=== PATIENT | female | born 1990 | race Caucasian/White ===

== ENCOUNTER 2017-07-02 18:35 | Inpatient (IN) | payer OTHER ==
[~2017-07-02] VITALS: Ht 157.5 cm; Wt 64.9 kg
[2017-07-02] MEDS ORDERED: IV NORMAL SALINE 1000ML BAG 1,000 ML IV ONE ×3 (19:15→23:00)
[2017-07-02] MEDS ORDERED: ONDANSETRON PF 4 MG/2 ML VIAL. IV ONE (19:15)
[2017-07-02 19:45] LABS: BASO % 1 % (0-3); EOS % 0 % (0-3); HEMATOCRIT 38.8 % (36.0-47.0); HEMOGLOBIN 12.9 g/dL (12.0-15.5); LYMPH # 0.3 x10^3/uL (1.0-4.8); LYMPH % 18 % (24-48); MEAN CORPUSCULAR HEMOGLOBIN 29 pg (25-35); MEAN CORPUSCULAR HGB CONC 33 g/dL (31-37); MEAN CORPUSCULAR VOLUME 88 fL (79-100); MONO % 2 % (0-9); NEUT % 79 % (31-73); PLATELET COUNT 145 x10^3/uL (140-400); RED CELL DISTRIBUTION WIDTH 13.6 % (11.5-14.5)
[2017-07-02 19:50] LABS: WHITE BLOOD COUNT 1.8 x10^3/uL (4.0-11.0)
[2017-07-02 19:56] LABS: POTASSIUM 3.5 mmol/L (3.5-5.1)
[2017-07-02 20:09] LABS: ALBUMIN 3.4 g/dL (3.4-5.0); ALBUMIN/GLOBULIN RATIO 0.8 (1.0-1.7); TOTAL BILIRUBIN 0.8 mg/dL (0.2-1.0); TOTAL PROTEIN 7.6 g/dL (6.4-8.2)
--- NOTE | 2017-07-02 20:43 | PHYS DOC ---
Past Medical History Past Medical History: No Pertinent History Past Surgical History: No Surgical History Alcohol Use: None Drug Use: None Adult General Chief Complaint Chief Complaint: NAUSEA/VOMITING/DIARRHA HPI HPI Patient is a 25 year old female presents with complaints of nausea and vomiting and diarrhea that are nonbloody. No new medications, no sick contacts, no recent travel. Patient denies any pain anywhere. Denies dysuria or vaginal discharge. No rashes Review of Systems Review of Systems Constitutional: Denies fever or chills [] Eyes: Denies change in visual acuity, redness, or eye pain [] HENT: Denies nasal congestion or sore throat [] Respiratory: Denies cough or shortness of breath [] Cardiovascular: No chest pain GI: Denies abdominal pain. Yes nausea, vomiting, diarrhea [] : Denies dysuria or hematuria , pelvic pain or vaginal discharge. Musculoskeletal: Denies back pain or joint pain [] Integument: Denies rash or skin lesions [] Neurologic: Denies headache, focal weakness or sensory changes [] Current Medications Current Medications Current Medications Medications (Trade) Dose Ordered Sig/Lucia Start Time Stop Time Status Last Admin Dose Admin Acetaminophen (Tylenol) 650 mg 1X ONCE 07/02/17 20:45 07/02/17 20:46 DC 07/02/17 20:47 650 MG Ceftriaxone Sodium 50 ml @ 100 mls/hr 1X ONCE 07/02/17 22:00 07/02/17 22:29 07/02/17 22:26 100 MLS/HR Norepinephrine Bitartrate 250 ml @ 0 mls/hr 1X ONCE 07/02/17 23:00 07/02/17 23:01 Ondansetron HCl (Zofran) 4 mg 1X ONCE 07/02/17 19:15 07/02/17 19:29 DC 07/02/17 19:28 4 MG Sodium Chloride 1,000 ml @ 1,000 mls/hr 1X ONCE 07/02/17 23:00 07/02/17 23:59 Allergies Allergies Allergies Coded Allergies Type Severity Reaction Last Updated Verified No Known Drug Allergies 07/02/17 No Physical Exam Physical Exam Constitutional: Well developed, well nourished, mild distress, non-toxic appearance. Pale HENT: Normocephalic, atraumatic, bilateral external ears normal, oropharynx dry , no oral exudates, nose normal. [] Eyes: PERRLA, EOMI, conjunctiva normal, no discharge. [] Neck: Normal range of motion, no tenderness, supple, no stridor. [] Cardiovascular:Heart rate regular rhythm, no murmur, equal pulses, normal perfusion Lungs & Thorax: Bilateral breath sounds clear to auscultation, no tachypnea Abdomen: Bowel sounds normal, soft, no tenderness, no masses, no pulsatile masses. [] Skin: Warm, dry, no erythema, no rash. [] Back: Normal range of motion Extremities: No tenderness, no cyanosis, no DVT, ROM intact, no edema. [] Neurologic: Alert and oriented X 3, normal motor function, no focal deficits noted. [] Psychologic: Affect normal, judgement normal, mood normal. [] Current Patient Data Vital Signs Vital Signs Date Time Temp Pulse Resp B/P (MAP) Pulse Ox O2 Delivery O2 Flow Rate FiO2 07/02/17 21:45 99.6 102 22 94/56 (69) 97 Room Air 99.6 Lab Values Laboratory Tests Test 07/02/17 18:28 07/02/17 19:15 07/02/17 19:20 POC Urine HCG, Qualitative Hcg negative (Negative) Urine Collection Type Unknown Urine Color Yellow Urine Clarity Cloudy Urine pH 5.5 Urine Specific [place] 1.025 Urine Protein 100 mg/dL (NEG-TRACE) Urine Glucose (UA) 100 mg/dL (NEG) Urine Ketones (Stick) 40 mg/dL (NEG) Urine Blood Large (NEG) Urine Nitrite Negative (NEG) Urine Bilirubin Negative (NEG) Urine Urobilinogen Dipstick 0.2 mg/dL (0.2 mg/dL) Urine Leukocyte Esterase Moderate (NEG) Urine RBC Tntc /HPF (0-2) Urine WBC >40 /HPF (0-4) Urine Squamous Epithelial Cells Few /LPF Urine Bacteria Many /HPF (0-FEW) Urine Mucus Mod /LPF White Blood Count 1.8 x10^3/uL (4.0-11.0) *L Red Blood Count 4.40 x10^6/uL (3.50-5.40) Hemoglobin 12.9 g/dL (12.0-15.5) Hematocrit 38.8 % (36.0-47.0) Mean Corpuscular Volume 88 fL (79-100) Mean Corpuscular Hemoglobin 29 pg (25-35) Mean Corpuscular Hemoglobin Concent 33 g/dL (31-37) Red Cell Distribution Width 13.6 % (11.5-14.5) Platelet Count 145 x10^3/uL (140-400) Neutrophils (%) (Auto) 79 % (31-73) H Lymphocytes (%) (Auto) 18 % (24-48) L Monocytes (%) (Auto) 2 % (0-9) Eosinophils (%) (Auto) 0 % (0-3) Basophils (%) (Auto) 1 % (0-3) Neutrophils # (Auto) 1.4 x10^3uL (1.8-7.7) L Lymphocytes # (Auto) 0.3 x10^3/uL (1.0-4.8) L Monocytes # (Auto) 0.0 x10^3/uL (0.0-1.1) Eosinophils # (Auto) 0.0 x10^3/uL (0.0-0.7) Basophils # (Auto) 0.0 x10^3/uL (0.0-0.2) Segmented Neutrophils % 82 % (35-66) H Lymphocytes % 18 % (24-48) L Platelet Estimate Adequate (ADEQUATE) Sodium Level 135 mmol/L (136-145) L Potassium Level 3.5 mmol/L (3.5-5.1) Chloride Level 101 mmol/L (98-107) Carbon Dioxide Level 19 mmol/L (21-32) L Anion Gap 15 (6-14) H Blood Urea Nitrogen 11 mg/dL (7-20) Creatinine 1.0 mg/dL (0.6-1.0) Estimated GFR (Cockcroft-Gault) 67.0 BUN/Creatinine Ratio 11 (6-20) Glucose Level 152 mg/dL (70-99) H Lactic Acid Level 2.4 mmol/L (0.4-2.0) H Calcium Level 9.0 mg/dL (8.5-10.1) Total Bilirubin 0.8 mg/dL (0.2-1.0) Aspartate Amino Transferase (AST) 17 U/L (15-37) Alanine Aminotransferase (ALT) 14 U/L (14-59) Alkaline Phosphatase 45 U/L (46-116) L Total Protein 7.6 g/dL (6.4-8.2) Albumin 3.4 g/dL (3.4-5.0) Albumin/Globulin Ratio 0.8 (1.0-1.7) L Laboratory Tests 07/02/17 19:20 Laboratory Tests 07/02/17 19:20 EKG EKG [] Radiology/Procedures Radiology/Procedures [] Course & Med Decision Making Course & Med Decision Making Pertinent Labs and Imaging studies reviewed. (See chart for details) discussed with patient. 2044 pt feels improved, no vomiting in the ED. 2227 pt BP has been trending down despite fluids. Levophed will be started. Pt admission will be changed from med/tele to ICU. Dr Black has been paged to inform regarding change in status. [] Dragon Disclaimer Dragon Disclaimer This electronic medical record was generated, in whole or in part, using a voice recognition dictation system. Departure Departure Impression: Primary Impression: Leukopenia Additional Impressions: Fever UTI (urinary tract infection) Hypotension Disposition: ADMITTED INPATIENT Admitting Physician: Louann Black Condition: GUARDED Problem Qualifiers Jose CALLEJAS MD Jul 02, 2017 20:43
[2017-07-02 20:45] LABS: PLT ESTIMATE ADEQUATE (ADEQUATE)
[2017-07-02] MEDS ORDERED: ACETAMINOPHEN 325 MG TABLET. PO ONE (20:45)
[2017-07-02 20:52] LABS: BILIRUBIN,URINE NEGATIVE (NEG); GLUCOSE,URINE 100 mg/dL (NEG); NITRITE,URINE NEGATIVE (NEG); PH,URINE 5.5; PROTEIN,URINE 100 mg/dL (NEG-TRACE); UROBILINOGEN,URINE 0.2 mg/dL (0.2 mg/dL)
[2017-07-02 21:25] LABS: BACTERIA,URINE MANY /HPF (0-FEW); RBC,URINE TNTC /HPF (0-2); SQUAMOUS EPITHELIAL CELL,UR FEW /LPF; WBC,URINE >40 /HPF (0-4)
[2017-07-02] MEDS ORDERED: NOREPINEPHRIN PREMIX 250 ML IV ONE (23:00)
[2017-07-02 23:15] VITALS: BP 85/52
[2017-07-02 23:30] VITALS: BP 96/63
[2017-07-02 23:45] VITALS: BP 87/55
[2017-07-03] VITALS (16 sets, daily range): BP systolic 73–108; BP diastolic 42–79
[2017-07-03] MEDS ORDERED: NOREPINEPHRIN PREMIX 250 ML IV PRN (00:45)
[2017-07-03] MEDS: IV NORMAL SALINE 1000ML BAG 1,000 ML IV SCH ×4 (01:16→15:32)
[2017-07-03] MEDS: MORPHINE SULFATE 2 MG/ML DISP.SYRIN. IV PRN ×2 (01:17→14:11)
[2017-07-03] MEDS: ONDANSETRON PF 4 MG/2 ML VIAL. IV PRN ×2 (01:18→12:56)
[2017-07-03] MEDS: ACETAMINOPHEN 325 MG TABLET. PO PRN ×2 (01:18→12:55)
[2017-07-03 05:29] LABS: BASO % 0 % (0-3); EOS % 0 % (0-3); HEMATOCRIT 33.2 % (36.0-47.0); HEMOGLOBIN 11.5 g/dL (12.0-15.5); LYMPH # 0.7 x10^3/uL (1.0-4.8); LYMPH % 3 % (24-48); MEAN CORPUSCULAR HEMOGLOBIN 30 pg (25-35); MEAN CORPUSCULAR HGB CONC 35 g/dL (31-37); MEAN CORPUSCULAR VOLUME 87 fL (79-100); MONO % 8 % (0-9); NEUT % 89 % (31-73); PLATELET COUNT 167 x10^3/uL (140-400); RED BLOOD COUNT 3.81 x10^6/uL (3.50-5.40); RED CELL DISTRIBUTION WIDTH 13.5 % (11.5-14.5)
[2017-07-03 06:11] LABS: CREATININE 0.9 mg/dL (0.6-1.0); GFR 75.1
[2017-07-03 06:18] LABS: CALCIUM 7.1 mg/dL (8.5-10.1)
[2017-07-03 06:19] LABS: WHITE BLOOD COUNT 24.9 x10^3/uL (4.0-11.0)
--- NOTE | 2017-07-03 08:24 | RAD ---
EXAM: CHEST 1 VIEW History: Lower abdominal pain, fever COMPARISON: None available. TECHNIQUE: Single portable radiograph of the chest FINDINGS: The cardiac silhouette is unremarkable. The lungs are clear bilaterally. The costophrenic sulci are clear and well demarcated. IMPRESSION: No radiographic evidence of an acute cardiopulmonary process.
[2017-07-03 09:13] LABS: PLT ESTIMATE ADEQUATE (ADEQUATE)
[2017-07-03] MEDS ORDERED: POTASSIUM CHLORIDE 20 MEQ TABLET.ER. PO ONE (12:30)
[2017-07-03 12:57] LABS: BASO # 0.1 x10^3/uL (0.0-0.2); BASO % 0 % (0-3); EOS % 0 % (0-3); HEMATOCRIT 31.3 % (36.0-47.0); HEMOGLOBIN 10.5 g/dL (12.0-15.5); LYMPH # 1.4 x10^3/uL (1.0-4.8); LYMPH % 8 % (24-48); MEAN CORPUSCULAR HEMOGLOBIN 30 pg (25-35); MEAN CORPUSCULAR HGB CONC 34 g/dL (31-37); MEAN CORPUSCULAR VOLUME 88 fL (79-100); MONO % 9 % (0-9); NEUT % 82 % (31-73); PLATELET COUNT 130 x10^3/uL (140-400); RED BLOOD COUNT 3.55 x10^6/uL (3.50-5.40); RED CELL DISTRIBUTION WIDTH 13.7 % (11.5-14.5); WHITE BLOOD COUNT 17.2 x10^3/uL (4.0-11.0)
--- NOTE | 2017-07-03 13:42 | SSS ---
ADMIT DATE: 07/03/2017 CHIEF COMPLAINT: Fever and abdominal pain. HISTORY OF PRESENT ILLNESS: The patient is a pleasant, healthy 26-year-old female who presented with abdominal pain. She rates it at 10/10. She seemed to have some sepsis ____ is little hypotensive. Her white count initially came back at 1.8 and then we repeated, it was 26,000. She was briefly started on Levophed and admitted overnight to the ICU. This morning, her symptoms are completely gone. She is actually normal. She is tolerating Frosted Flakes and is requesting discharge. I told the nurse that we will check her stat CBC and see if her white count is back down to reasonable range, perhaps under 15, then we would consider discharge. PAST MEDICAL HISTORY: None. ALLERGIES: None. FAMILY HISTORY: Hypertension. SOCIAL HISTORY: She has a bachelor's degree animal science. 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 MEDICATIONS: Reviewed, please refer to the MRAD. REVIEW OF SYSTEMS: GENERAL: No history of weight change, weakness or fevers. SKIN: No bruising, hair changes or rashes. EYES: No blurred, double or loss of vision. NOSE AND THROAT: No history of nosebleeds, hoarseness or sore throat. HEART: No history of palpitations, chest pain or shortness of breath on exertion. LUNGS: Denies cough, hemoptysis, wheezing or shortness of breath. GASTROINTESTINAL: Denies changes in appetite, nausea, vomiting, diarrhea or constipation. GENITOURINARY: No history of frequency, urgency, hesitancy or nocturia. NEUROLOGIC: Denies history of numbness, tingling, tremor or weakness. PSYCHIATRIC: No history of panic, anxiety or depression. ENDOCRINE: No history of heat or cold intolerance, polyuria or polydipsia. EXTREMITIES: Denies muscle weakness, joint pain, pain on walking or stiffness. PHYSICAL EXAMINATION: VITAL SIGNS: Temperature afebrile, pulse 60, respirations 18, blood pressure 103/77. GENERAL: She is alert, cooperative. HEART: Normal S1, S2. LUNGS: Clear. ABDOMEN: Soft, nontender. EXTREMITIES: No edema. SKIN: No rashes. PSYCHIATRIC: She is stable. VASCULAR: Good capillary refill. ENDOCRINE: No thyromegaly. LYMPHATICS: No cervical nodes. HEMATOPOIETIC: No bruising. LABORATORY DATA: White count as previously stated was 1.8, then it went to 24.9, I am not sure which one is the most accurate, but I repeated it. Hemoglobin 12, platelets 145. Electrolytes normal other than potassium of and CO2 of 18. Glucose is a little high at 166. Lactic acid level was slightly high, last night at 7:00 at 2.4, this morning it is normal at 1.5. Procalcitonin 2.72. ASSESSMENT AND PLAN: Resolving brief episodes of sepsis. Clinically, the patient is doing well. We will go ahead and consider discharge this afternoon if her white count is less than 15, need to replace her potassium first and continue IV fluids for now, encouraged p.o. intake. I did discuss the case at length with her mom and dad and they agree. DISPOSITION: Home. ACTIVITY: As tolerated. DIET: Low sodium. MEDICATIONS: Please see the MRAD. Total time 32 minutes. MAI BELTRE DO DR: MARIAH/anna JOB#: [id number] / [id number]
[2017-07-03] MEDS ORDERED: PROCHLORPERAZINE 10 MG/2 ML VIAL. IV PRN (15:00)
[2017-07-03] MEDS ORDERED: fentaNYL PF VIAL 100 MCG/2 ML VIAL IV PRN (16:15)
[2017-07-03] MEDS ORDERED: MORPHINE SULFATE 2 MG/ML DISP.SYRIN. IV PRN (16:15)
--- NOTE | 2017-07-03 17:17 | RAD ---
Complete pelvic ultrasound HISTORY: 26-year-old female with left-sided pelvic pain TECHNIQUE: Transabdominal transvaginal transducers with grayscale and duplex Doppler sonography were utilized FINDINGS: Transabdominal imaging of trace anteverted uterus which measures 9.2 x 4.7 cm longitudinal. Ovaries and endometrial poorly visualized. Transvaginal imaging demonstrates anteverted uterus. Majority of the endometrium is hyperechoic with a thickness of 4 mm. At the fundal endometrium is focal hypoechoic expansion measuring 8 mm anterior of which are 2 myometrial hypoechoic lesions measuring 12 mm and 6 mm maximum diameter respectively. Right ovary measures 4.2 x 2.6 x 2.0 cm, left ovary measures 3.5 x 2.6 x 2.9 cm. There are bilateral ovarian subcentimeter follicles. Symmetric intact bilateral ovarian blood flow. There is a mild volume of fluid within the cul-de-sac. IMPRESSION: Mild pelvic free fluid. 2 uterine fundal myometrial masses largest measuring 12 mm likely small fibroids. At the fundal endometrium there is focal hypoechoic expansion which could be focal hematoma although a endometrial polyp cannot be excluded. Electronically signed by: Tho Cardoso MD (07/03/2017 5:13 PM) [facility] [place]
--- NOTE | 2017-07-03 19:51 | PDOC2 ---
CONSULT Date of Consult Date of Consult DATE: 07/03/17 TIME: 19:46 Reason for Consult Reason for Consult: abd pain Referring Physician Referring Physician: Dr. Black Identification/Chief Complaint Chief Complaint abd pain Problems: Source Source: Patient History of Present Illness Reason for Visit: 26 y/o G0 presented to ED with c/o severe pelvic pain that started yesterday with onset of menses. She recently switched control pills from Tri- Sprintec to higher dose combined OCP's. Counseled on menstrual cycles and switching OCP's. Discussed pelvic sono results of small fibroids. Good blood flow to both ovaries. Pain is better controlled. Past Surgical History Past Surgical History: No pertinent history Social History Social History: Parent No ALCOHOL: none Lives: with Family Domestic Violence: Neg Current Problem List Problem List Problems Medical Problems: (1) Fever Status: Acute (2) Hypotension Status: Acute (3) Leukopenia Status: Acute (4) UTI (urinary tract infection) Status: Acute Current Medications Current Medications Current Medications Ondansetron HCl (Zofran) 4 mg 1X ONCE IV Last administered on 07/02/17 19:28; Start 07/02/17 at 19:15; Stop 07/02/17 at 19:29; Status DC Sodium Chloride 1,000 ml @ 1,000 mls/hr 1X ONCE IV Last administered on 19:28; Start 07/02/17 at 19:15; Stop 07/02/17 at 20:14; Status DC Acetaminophen (Tylenol) 650 mg 1X ONCE PO Last administered on 07/02/17 20:47 ; Start 07/02/17 at 20:45; Stop 07/02/17 at 20:46; Status DC Sodium Chloride 1,000 ml @ 1,000 mls/hr 1X ONCE IV Last administered on 21:25; Start 07/02/17 at 21:30; Stop 07/02/17 at 22:29; Status DC Ceftriaxone Sodium 50 ml @ 100 mls/hr 1X ONCE IV Last administered on 22:26; Start 07/02/17 at 22:00; Stop 07/02/17 at 22:29; Status DC Sodium Chloride 1,000 ml @ 1,000 mls/hr 1X ONCE IV Last administered on 22:27; Start 07/02/17 at 23:00; Stop 07/03/17 at 00:00; Status DC Norepinephrine Bitartrate 250 ml @ 0 mls/hr 1X ONCE IV Last administered on 22:37; Start 07/02/17 at 23:00; Stop 07/02/17 at 23:01; Status DC Acetaminophen (Tylenol) 650 mg PRN Q6HRS PRN PO MILD PAIN / TEMP Last administered on 07/03/17 12:55; Start 07/03/17 at 00:45 Morphine Sulfate 2 mg PRN Q6HRS PRN IV SEVERE PAIN Last administered on 14:11; Start 07/03/17 at 00:45 Norepinephrine Bitartrate 250 ml @ 0 mls/hr CONT PRN IV SEE I/O RECORD; Start 07/03/17 at 00:45; Stop 07/03/17 at 14:37; Status DC Ceftriaxone Sodium 1 gm/ Sodium Chloride 50 ml @ 100 mls/hr Q24H IV ; Start 07/03/17 at 22:00 Sodium Chloride 1,000 ml @ 100 mls/hr Q10H IV Last administered on 07/03/17 15 :32; Start 07/03/17 at 00:45 Ondansetron HCl (Zofran) 4 mg PRN Q8HRS PRN IV NAUSEA/VOMITING Last administered on 07/03/17 12:56; Start 07/03/17 at 00:45 Potassium Chloride (Klor-Con) 40 meq 1X ONCE PO Last administered on 07/03/17 12:55; Start 07/03/17 at 12:30; Stop 07/03/17 at 12:34; Status DC Prochlorperazine Edisylate (Compazine) 10 mg PRN Q8HRS PRN IV NAUSEA/VOMITING Last administered on 07/03/17 15:28; Start 07/03/17 at 15:00 Morphine Sulfate 2 mg PRN Q2HR PRN IV PAIN; Start 07/03/17 at 16:15 Fentanyl Citrate (Fentanyl 2ml Vial) 25 mcg PRN Q2HR PRN IV PAIN; Start at 16:15 Allergies Allergies: Coded Allergies: No Known Drug Allergies (Unverified , 07/02/17) ROS General: No: Chills, Night Sweats, Fatigue, Malaise, Appetite, Other PSYCHOLOGICAL ROS: No: Anxiety, Behavioral Disorder, Concentration difficultie , Decreased libido, Depression, Disorientation, Hallucinations, Hostility, Irritablity, Memory difficulties, Mood Swings, Obsessive thoughts, Physical abuse, Sexual abuse, Sleep disturbances, Suicidal ideation, Other Eyes: No Blurry vision, No Decreased vision, No Double vision, No Dry eyes, No Excessive tearing, No Eye Pain, No Itchy Eyes, No Loss of vision, No Photophobia , No Scotomata, No Uses contacts, No Uses glasses, No Other HEENT: No: Heacaches, Visual Changes, Hearing change, Nasal congestion, Nasal discharge, Oral lesions, Sinus pain, Sore Throat, Epistaxis, Sneezing, Snoring, Tinnitus, Vertigo, Vocal changes, Other ALLERGY AND IMMUNOLOGY: No: Hives, Insect Bite Sensitivity, Itchy/Watery Eyes, Nasal Congestion, Post Nasal Drip, Seasonal Allergies, Other Hematological and Lymphatic: No: Bleeding Problems, Blood Clots, Blood Transfusions, Brusing, Night Sweats, Pallor, Swollen Lymph Nodes, Other ENDOCRINE: No: Breast Changes, Galactorrhea, Hair Pattern Changes, Hot Flashes , Malaise/lethargy, Mood Swings, Palpitations, Polydipsia/polyuria, Skin Changes , Temperature Intolerance, Unexpected Weight Changes, Other Breast: No New/Changing Breast Lumps, No Nipple changes, No Nipple discharge, No Other Respiratory: No: Cough, Hemoptysis, Orthopnea, Pleuritic Pain, Shortness of breath, SOB with excertion, Sputum Changes, Stridor, Tachypnea, Wheezing, Other Cardiovascular: No Chest Pain, No Palpitations, No Orthopnea, No Paroxysmal Noc. Dyspnea, No Edema, No Lt Headedness, No Other Gastrointestinal: Yes Nausea, Yes Abdominal Pain, No Vomiting, No Diarrhea, No Constipation, No Melena, No Hematochezia, No Other Genitourinary: No Dysuria, No Frequency, No Incontinence, No Hematuria, No Retention, No Discharge, No Urgency, No Pain, No Flank Pain, No Other, No , No , No , No , No , No , No Musculoskeletal: No Gait Disturbance, No Joint Pain, No Joint Stiffness, No Joint Swelling, No Muscle Pain, No Muscular Weakness, No Pain In:, No Swelling In:, No Other Neurological: No Behavorial Changes, No Bowel/Bladder ControlChng, No Confusion , No Dizziness, No Gait Disturbance, No Headaches, No Impaired Coord/balance, No Memory Loss, No Numbness/Tingling, No Seizures, No Speech Problems, No Tremors, No Visual Changes, No Weakness, No Other Physical Exam General: Alert, Oriented X3, Cooperative HEENT: Atraumatic Lungs: Clear to auscultation Heart: Regular rate Abdomen: Normal bowel sounds, Soft, No masses, Other (mild tenderness to palpation) Extremities: No edema Neuro: Normal gait Psych/Mental Status: Mental status NL Vitals VITALS Vital Signs Date Time Temp Pulse Resp B/P (MAP) Pulse Ox O2 Delivery O2 Flow Rate FiO2 07/03/17 16:00 98.3 75 18 106/72 (83) 99 Room Air 98.3 Labs Labs Laboratory Tests Test 07/02/17 18:28 07/02/17 19:15 07/02/17 19:20 07/02/17 22:38 Bedside Urine HCG, Qualitative Hcg negative (Negative) Urine Collection Type Unknown Urine Color Yellow Urine Clarity Cloudy Urine pH 5.5 Urine Specific [place] 1.025 Urine Protein 100 mg/dL (NEG-TRACE) Urine Glucose (UA) 100 mg/dL (NEG) Urine Ketones (Stick) 40 mg/dL (NEG) Urine Blood Large (NEG) Urine Nitrite Negative (NEG) Urine Bilirubin Negative (NEG) Urine Urobilinogen Dipstick 0.2 mg/dL (0.2 mg/dL) Urine Leukocyte Esterase Moderate (NEG) Urine RBC Tntc /HPF (0-2) Urine WBC >40 /HPF (0-4) Urine Squamous Epithelial Cells Few /LPF Urine Bacteria Many /HPF (0-FEW) Urine Mucus Mod /LPF White Blood Count 1.8 x10^3/uL (4.0-11.0) Red Blood Count 4.40 x10^6/uL (3.50-5.40) Hemoglobin 12.9 g/dL (12.0-15.5) Hematocrit 38.8 % (36.0-47.0) Mean Corpuscular Volume 88 fL (79-100) Mean Corpuscular Hemoglobin 29 pg (25-35) Mean Corpuscular Hemoglobin Concent 33 g/dL (31-37) Red Cell Distribution Width 13.6 % (11.5-14.5) Platelet Count 145 x10^3/uL (140-400) Neutrophils (%) (Auto) 79 % (31-73) Lymphocytes (%) (Auto) 18 % (24-48) Monocytes (%) (Auto) 2 % (0-9) Eosinophils (%) (Auto) 0 % (0-3) Basophils (%) (Auto) 1 % (0-3) Neutrophils # (Auto) 1.4 x10^3uL (1.8-7.7) Lymphocytes # (Auto) 0.3 x10^3/uL (1.0-4.8) Monocytes # (Auto) 0.0 x10^3/uL (0.0-1.1) Eosinophils # (Auto) 0.0 x10^3/uL (0.0-0.7) Basophils # (Auto) 0.0 x10^3/uL (0.0-0.2) Segmented Neutrophils % 82 % (35-66) Lymphocytes % 18 % (24-48) Platelet Estimate Adequate (ADEQUATE) Sodium Level 135 mmol/L (136-145) Potassium Level 3.5 mmol/L (3.5-5.1) Chloride Level 101 mmol/L (98-107) Carbon Dioxide Level 19 mmol/L (21-32) Anion Gap 15 (6-14) Blood Urea Nitrogen 11 mg/dL (7-20) Creatinine 1.0 mg/dL (0.6-1.0) Estimated GFR (Cockcroft-Gault) 67.0 BUN/Creatinine Ratio 11 (6-20) Glucose Level 152 mg/dL (70-99) Lactic Acid Level 2.4 mmol/L (0.4-2.0) 1.5 mmol/L (0.4-2.0) Calcium Level 9.0 mg/dL (8.5-10.1) Total Bilirubin 0.8 mg/dL (0.2-1.0) Aspartate Amino Transf (AST/SGOT) 17 U/L (15-37) Alanine Aminotransferase (ALT/SGPT) 14 U/L (14-59) Alkaline Phosphatase 45 U/L (46-116) Total Protein 7.6 g/dL (6.4-8.2) Albumin 3.4 g/dL (3.4-5.0) Albumin/Globulin Ratio 0.8 (1.0-1.7) Procalcitonin 2.72 ng/mL (0.00-0.10) Test 07/03/17 04:30 07/03/17 12:36 White Blood Count 24.9 x10^3/uL (4.0-11.0) 17.2 x10^3/uL (4.0-11.0) Red Blood Count 3.81 x10^6/uL (3.50-5.40) 3.55 x10^6/uL (3.50-5.40) Hemoglobin 11.5 g/dL (12.0-15.5) 10.5 g/dL (12.0-15.5) Hematocrit 33.2 % (36.0-47.0) 31.3 % (36.0-47.0) Mean Corpuscular Volume 87 fL (79-100) 88 fL (79-100) Mean Corpuscular Hemoglobin 30 pg (25-35) 30 pg (25-35) Mean Corpuscular Hemoglobin Concent 35 g/dL (31-37) 34 g/dL (31-37) Red Cell Distribution Width 13.5 % (11.5-14.5) 13.7 % (11.5-14.5) Platelet Count 167 x10^3/uL (140-400) 130 x10^3/uL (140-400) Neutrophils (%) (Auto) 89 % (31-73) 82 % (31-73) Lymphocytes (%) (Auto) 3 % (24-48) 8 % (24-48) Monocytes (%) (Auto) 8 % (0-9) 9 % (0-9) Eosinophils (%) (Auto) 0 % (0-3) 0 % (0-3) Basophils (%) (Auto) 0 % (0-3) 0 % (0-3) Neutrophils # (Auto) 22.2 x10^3uL (1.8-7.7) 14.2 x10^3uL (1.8-7.7) Lymphocytes # (Auto) 0.7 x10^3/uL (1.0-4.8) 1.4 x10^3/uL (1.0-4.8) Monocytes # (Auto) 1.9 x10^3/uL (0.0-1.1) 1.5 x10^3/uL (0.0-1.1) Eosinophils # (Auto) 0.0 x10^3/uL (0.0-0.7) 0.1 x10^3/uL (0.0-0.7) Basophils # (Auto) 0.0 x10^3/uL (0.0-0.2) 0.1 x10^3/uL (0.0-0.2) Segmented Neutrophils % 48 % (35-66) Band Neutrophils % 44 % (0-9) Lymphocytes % 1 % (24-48) Monocytes % 3 % (0-10) Metamyelocytes % 4 % (0-0) Platelet Estimate Adequate (ADEQUATE) Sodium Level 138 mmol/L (136-145) Potassium Level 3.0 mmol/L (3.5-5.1) Chloride Level 106 mmol/L (98-107) Carbon Dioxide Level 18 mmol/L (21-32) Anion Gap 14 (6-14) Blood Urea Nitrogen 9 mg/dL (7-20) Creatinine 0.9 mg/dL (0.6-1.0) Estimated GFR (Cockcroft-Gault) 75.1 Glucose Level 166 mg/dL (70-99) Lactic Acid Level 1.5 mmol/L (0.4-2.0) Calcium Level 7.1 mg/dL (8.5-10.1) Laboratory Tests Test 07/02/17 22:38 07/03/17 04:30 07/03/17 12:36 Lactic Acid Level 1.5 mmol/L (0.4-2.0) 1.5 mmol/L (0.4-2.0) White Blood Count 24.9 x10^3/uL (4.0-11.0) 17.2 x10^3/uL (4.0-11.0) Red Blood Count 3.81 x10^6/uL (3.50-5.40) 3.55 x10^6/uL (3.50-5.40) Hemoglobin 11.5 g/dL (12.0-15.5) 10.5 g/dL (12.0-15.5) Hematocrit 33.2 % (36.0-47.0) 31.3 % (36.0-47.0) Mean Corpuscular Volume 87 fL (79-100) 88 fL (79-100) Mean Corpuscular Hemoglobin 30 pg (25-35) 30 pg (25-35) Mean Corpuscular Hemoglobin Concent 35 g/dL (31-37) 34 g/dL (31-37) Red Cell Distribution Width 13.5 % (11.5-14.5) 13.7 % (11.5-14.5) Platelet Count 167 x10^3/uL (140-400) 130 x10^3/uL (140-400) Neutrophils (%) (Auto) 89 % (31-73) 82 % (31-73) Lymphocytes (%) (Auto) 3 % (24-48) 8 % (24-48) Monocytes (%) (Auto) 8 % (0-9) 9 % (0-9) Eosinophils (%) (Auto) 0 % (0-3) 0 % (0-3) Basophils (%) (Auto) 0 % (0-3) 0 % (0-3) Neutrophils # (Auto) 22.2 x10^3uL (1.8-7.7) 14.2 x10^3uL (1.8-7.7) Lymphocytes # (Auto) 0.7 x10^3/uL (1.0-4.8) 1.4 x10^3/uL (1.0-4.8) Monocytes # (Auto) 1.9 x10^3/uL (0.0-1.1) 1.5 x10^3/uL (0.0-1.1) Eosinophils # (Auto) 0.0 x10^3/uL (0.0-0.7) 0.1 x10^3/uL (0.0-0.7) Basophils # (Auto) 0.0 x10^3/uL (0.0-0.2) 0.1 x10^3/uL (0.0-0.2) Segmented Neutrophils % 48 % (35-66) Band Neutrophils % 44 % (0-9) Lymphocytes % 1 % (24-48) Monocytes % 3 % (0-10) Metamyelocytes % 4 % (0-0) Platelet Estimate Adequate (ADEQUATE) Sodium Level 138 mmol/L (136-145) Potassium Level 3.0 mmol/L (3.5-5.1) Chloride Level 106 mmol/L (98-107) Carbon Dioxide Level 18 mmol/L (21-32) Anion Gap 14 (6-14) Blood Urea Nitrogen 9 mg/dL (7-20) Creatinine 0.9 mg/dL (0.6-1.0) Estimated GFR (Cockcroft-Gault) 75.1 Glucose Level 166 mg/dL (70-99) Calcium Level 7.1 mg/dL (8.5-10.1) Assessment/Plan Assessment/Plan A: Dysmenorrhea Fibroid Uterus P: Agree with pain management. Recommend Motrin 800mg TID during menses and continue with new OCP's. Pt. plans to f/u with PCP. Thank you for consult. MONTSERRAT CASTRO Jr, MD Jul 03, 2017 19:51
--- NOTE | 2017-07-04 01:10 | ACF ---
Admission Forms Criteria URINARY COMPLICATIONS (Place 'X' for any and all applicable criteria): Ongoing inpatient care may be needed for Urinary complications with 1 or more of the following: [ ]I. Reduced urine output (eg, despite adequate hydration) [ ]II. Renal failure. (Also use Renal Failure: Common Complications and Conditions as appropriate) [ ]III. Urinary retention requiring drainage or surgery(19)(20)(21)(33)(34) [ ]IV. Postobstructive diuresis requiring close monitoring of urine output and intravenous compensation for excessive fluid losses(35) [X ]V. Urinary tract infection requiring inpatient care as indicated by ANY ONE of the following(8)(19)(20): [ ]a) Hemodynamic instability [ ]b) Severe symptoms (eg, high fever, severe pain) [ ]c) Vomiting or dehydration requiring ongoing inpatient care [ X]d) IV antibiotic needs that cannot be managed at lower level of care [ ]e) Obstruction of collecting system by stone or tumor Extended stay beyond goal length of stay for primary condition may be needed until ALL of the following are present(3)(4)(5)(8): [ ]a) Renal function (creatinine) at baseline, or daily decreases in creatinine consistent with renal function return [ ]b) Voiding adequately or with urinary catheter or percutaneous suprapubic tube and management regimen in place that is performable at lower level of care. [ ]c) Urine output adequate [ ]d) Fever absent or resolving [ ]e) Infection absent or treatable at next level of care The original [facility] content created by [facility] has been revised. The portions of the content which have been revised are identified through the use of italic text, and [facility] has neither reviewed nor approved the modified material. All other unmodified content is copyright [facility] Please see references footnoted in the original [facility] edition 2014 Admission Criteria Met?: Yes KALPESH REY Jul 04, 2017 01:10
[2017-07-04] MEDS: IV NORMAL SALINE 1000ML BAG 1,000 ML IV SCH ×2 (02:01→12:09)
[2017-07-04 03:00] VITALS: BP 114/74
[2017-07-04 04:51] LABS: BASO % 0 % (0-3); EOS % 1 % (0-3); HEMATOCRIT 29.7 % (36.0-47.0); HEMOGLOBIN 10.3 g/dL (12.0-15.5); LYMPH # 1.1 x10^3/uL (1.0-4.8); LYMPH % 7 % (24-48); MEAN CORPUSCULAR HEMOGLOBIN 30 pg (25-35); MEAN CORPUSCULAR HGB CONC 35 g/dL (31-37); MEAN CORPUSCULAR VOLUME 87 fL (79-100); MONO % 10 % (0-9); NEUT % 82 % (31-73); PLATELET COUNT 134 x10^3/uL (140-400); RED BLOOD COUNT 3.44 x10^6/uL (3.50-5.40); RED CELL DISTRIBUTION WIDTH 13.7 % (11.5-14.5); WHITE BLOOD COUNT 15.1 x10^3/uL (4.0-11.0)
--- NOTE | 2017-07-04 05:01 | CONS ---
DATE OF CONSULTATION: 07/03/2017 REQUESTING PHYSICIAN: Dr. Luna. REASON FOR CONSULTATION: Sepsis. HISTORY OF PRESENT ILLNESS: This is a 26-year-old female who has a 2-day history of having severe abdominal cramping. She was getting into her periods, but she has never had this kind of a cramping that she doubled over and started puking. Denied any urinary symptoms. She did have fever. The patient came in with a white count of 1.8, hypotension, abnormal urinalysis. The patient was admitted in ICU. She responded to the fluids. She is more comfortable, although she vomited today. The patient is on Rocephin. The patient denies any headache, visual symptoms. Denies any chest pain, denies any urinary symptoms or bowel symptoms. PAST MEDICAL HISTORY: Unremarkable. SOCIAL HISTORY: Negative for smoking, alcohol or illicit drug use. ALLERGIES: No known drug allergies. CURRENT MEDICATIONS: The patient is on Rocephin. REVIEW OF SYSTEMS: As per HPI, all other systems reviewed are negative. PHYSICAL EXAMINATION: GENERAL: Alert, oriented female, not in distress. VITAL SIGNS: Stable. The patient did have a T-max of 102.4 and blood pressure is into the 80s, actually lowest was 75, systolic. Rest of the current vital signs stable. HEENT: NAD. NECK: Supple, no JVP, no lymphadenopathy. LUNGS: Clear. HEART: S1, S2 regular. ABDOMEN: Benign. EXTREMITIES: No edema or cyanosis. SKIN: Unremarkable. NEUROLOGIC: The patient is neurologically intact. LABORATORY DATA: White count on admission was 1.8, then it rebounded next day that is today was 24. Chemistries are unremarkable, although she had lactic acid of 2.4. Urinalysis showed too numerous to count rbc's and more than 40 wbc's. X-ray was unremarkable. IMPRESSION: 1. Urinary tract infection with sepsis. 2. Abdominal cramping. 3. Nausea and vomiting. PLAN: Recommend continue Rocephin, supportive care, check the cultures and if she continues to have vomiting and/or abdominal pain, then I would do abdominal CT. Thank you very much, Dr. Luna, for giving me the opportunity to participate in this patient's care. ASMITA AGUIRRE MD DR: ELAINE/anna JOB#: [id number] / [id number]
[2017-07-04] MEDS: ACETAMINOPHEN 325 MG TABLET. PO PRN ×2 (06:14→12:08)
[2017-07-04 07:34] VITALS: BP 95/59
--- NOTE | 2017-07-04 10:36 | PDOC ---
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: Alert, oriented x 3, no focal neurologic deficit SKIN: No rash IV: ok Labs Lab Laboratory Tests Test 07/03/17 12:36 07/04/17 04:12 White Blood Count 17.2 x10^3/uL (4.0-11.0) 15.1 x10^3/uL (4.0-11.0) Red Blood Count 3.55 x10^6/uL (3.50-5.40) 3.44 x10^6/uL (3.50-5.40) Hemoglobin 10.5 g/dL (12.0-15.5) 10.3 g/dL (12.0-15.5) Hematocrit 31.3 % (36.0-47.0) 29.7 % (36.0-47.0) Mean Corpuscular Volume 88 fL (79-100) 87 fL (79-100) Mean Corpuscular Hemoglobin 30 pg (25-35) 30 pg (25-35) Mean Corpuscular Hemoglobin Concent 34 g/dL (31-37) 35 g/dL (31-37) Red Cell Distribution Width 13.7 % (11.5-14.5) 13.7 % (11.5-14.5) Platelet Count 130 x10^3/uL (140-400) 134 x10^3/uL (140-400) Neutrophils (%) (Auto) 82 % (31-73) 82 % (31-73) Lymphocytes (%) (Auto) 8 % (24-48) 7 % (24-48) Monocytes (%) (Auto) 9 % (0-9) 10 % (0-9) Eosinophils (%) (Auto) 0 % (0-3) 1 % (0-3) Basophils (%) (Auto) 0 % (0-3) 0 % (0-3) Neutrophils # (Auto) 14.2 x10^3uL (1.8-7.7) 12.4 x10^3uL (1.8-7.7) Lymphocytes # (Auto) 1.4 x10^3/uL (1.0-4.8) 1.1 x10^3/uL (1.0-4.8) Monocytes # (Auto) 1.5 x10^3/uL (0.0-1.1) 1.4 x10^3/uL (0.0-1.1) Eosinophils # (Auto) 0.1 x10^3/uL (0.0-0.7) 0.1 x10^3/uL (0.0-0.7) Basophils # (Auto) 0.1 x10^3/uL (0.0-0.2) 0.0 x10^3/uL (0.0-0.2) Pelvic US IMPRESSION: Mild pelvic free fluid. 2 uterine fundal myometrial masses largest measuring 12 mm likely small fibroids. At the fundal endometrium there is focal hypoechoic expansion which could be focal hematoma although a endometrial polyp cannot be excluded. Micro BLOOD CULTURE Preliminary NO GROWTH AFTER 1 DAY URINE CULTURE RES 1 Preliminary Gram negative rods Objective Assessment Urinary tract infection with sepsis. GNR Abdominal cramping, better Nausea and vomiting, better Leukopenia, then leukocytosis, trending down Uterine fibroids Plan Plan of Care Continue Rocephin Await GNR ID/susceptibilities D/w parents Attending Co-Sign The patient was seen and interviewed as well as examined at the bedside. The chart was reviewed. The case was discussed. Agree with the plan of care. BRIGITTE MCCAULEY APRN Jul 04, 2017 10:36 ASMITA AGUIRRE MD Jul 04, 2017 13:36
[2017-07-04 10:56] LABS: CALCIUM 7.2 mg/dL (8.5-10.1); CREATININE 0.8 mg/dL (0.6-1.0); POTASSIUM 4.2 mmol/L (3.5-5.1)
[2017-07-04 11:50] VITALS: BP 97/60
[2017-07-04] MEDS ORDERED: HYDROcodone/APAP 5/325MG 1 TAB TABLET PO PRN (14:15)
--- NOTE | 2017-07-04 14:43 | PDOC3 ---
Discharge Summary IPC Date of Admission: Jul 02, 2017 Discharge Date: Jul 04, 2017 Admitting Diagnosis UTI SEPSIS with uti hypotension abd pain, uterus fibroids leukocytopenia ,then leukocytosis with sepsis hypokalemia Problems: Final Diagnosis CONSULTS id Brief Hospital Course Ms. Gould is a 26 old F, comes for abd pain , N/V, was fund UTI, hypotension, admitted in ICU required levaphed for a short time. UCX is + for gram neg rods, final report still pending. id on board, on ceftriaxone, pain better, dc home with cipro x7ds fu with id for final ucx. dc time 35min. VITAL SIGNS: Temperature afebrile, pulse 60, respirations 18, blood pressure 103/77. GENERAL: She is alert, cooperative. HEART: Normal S1, S2. LUNGS: Clear. ABDOMEN: Soft, nontender. EXTREMITIES: No edema. SKIN: No rashes. PSYCHIATRIC: She is stable. VASCULAR: Good capillary refill. ENDOCRINE: No thyromegaly. LYMPHATICS: No cervical nodes. HEMATOPOIETIC: No bruising. Problems: Disposition home CONDITION AT DISCHARGE: Improved Diet regular No Active Prescriptions or Reported Meds Follow Up id next week SIMÓN DAVENPORT MD Jul 04, 2017 14:43
== END 2017-07-04 15:30 | disposition home or self-care (01) | DRG 872 ==
LOC: ER 18:35 → EDBD 20:49 → 1 WEST ICU 20:49 → 5 SOUTH 07-03 14:32
PROVIDERS: ADMIT Internal Medicine; ATTEND Internal Medicine
DX: A41.9 Sepsis, unspecified organism (principal); N39.0 Urinary tract infection, site not specified; D25.9 Leiomyoma of uterus, unspecified; D72.819 Decreased white blood cell count, unspecified; E87.6 Hypokalemia; N94.6 Dysmenorrhea, unspecified; Z82.49 Family history of ischemic heart disease and other diseases of the circulatory system
CPT/HCPCS: 36415; 71010; 76830; 76856; 80048; 80053; 81001; 81025; 83605; 84145; 85007; 85025; 87040; 87086; 87186; 87641; 96361; 96365; 96368; 96375; J0690; J0696; J0780; J2270; J2405; J3010; J7030; 99285-25

== ENCOUNTER → 2020-10-31 | Outpatient (CLI) | payer BC ==
[~2020-10-31] MED LIST: FERR324T8 PO; MEDR10TA PO; NORG1TAB6 PO
[2020-10-31 13:31] LABS: BASO # 0.1 x10^3/uL (0.0-0.2); BASO % 1 % (0-3); EOS # 0.1 x10^3/uL (0.0-0.7); EOS % 2 % (0-3); HEMATOCRIT 36.9 % (36.0-47.0); HEMOGLOBIN 12.3 g/dL (12.0-15.5); LYMPH # 2.6 x10^3/uL (1.0-4.8); LYMPH % 37 % (24-48); MEAN CORPUSCULAR HEMOGLOBIN 27 pg (25-35); MEAN CORPUSCULAR HGB CONC 33 g/dL (31-37); MEAN CORPUSCULAR VOLUME 83 fL (79-100); MONO # 0.5 x10^3/uL (0.0-1.1); MONO % 7 % (0-9); NEUT # 3.8 x10^3/uL (1.8-7.7); NEUT % 54 % (31-73); PLATELET COUNT 279 x10^3/uL (140-400); RED BLOOD COUNT 4.48 x10^6/uL (3.50-5.40)
[2020-10-31 13:54] LABS: ALBUMIN 3.5 g/dL (3.4-5.0); ALBUMIN/GLOBULIN RATIO 0.9 (1.0-1.7); CALCIUM 8.7 mg/dL (8.5-10.1); CREATININE 0.7 mg/dL (0.6-1.0); GFR 98.3; POTASSIUM 3.4 mmol/L (3.5-5.1); TOTAL BILIRUBIN 0.3 mg/dL (0.2-1.0); TOTAL PROTEIN 7.2 g/dL (6.4-8.2)
[2020-10-31 14:05] LABS: PLT ESTIMATE ADEQUATE (ADEQUATE)
[2020-10-31 14:06] LABS: ANISOCYTOSIS MOD; POIKILOCYTOSIS SLIGHT
== END ==
LOC: SURGPAT 12:17
PROVIDERS: ATTEND Obstetrics & Gynecology
DX: Z01.812 Encounter for preprocedural laboratory examination (principal); Z20.828 Contact with and (suspected) exposure to other viral communicable diseases
CPT/HCPCS: 36415; 80053; 85025; U0003

== ENCOUNTER 2020-11-07 06:07 | Observation (INO) | payer BC ==
[2020-11-07] VITALS (11 sets, daily range): BP systolic 85–123; BP diastolic 47–81
[~2020-11-07] VITALS: Ht 157.5 cm; Wt 65.3 kg
[~2020-11-07 06:07] MED LIST changes: +FERR324T23 PO; -FERR324T8 PO
[2020-11-07] MEDS ORDERED: PROPOFOL 10 MG/ML (20ML) VIAL. IV ONE (06:31)
[2020-11-07] MEDS ORDERED: LIDOCAINE 2% PF 5 ML VIAL. ONE (06:31)
[2020-11-07] MEDS ORDERED: ONDANSETRON PF 4 MG/2 ML VIAL. ONE (06:31)
[2020-11-07] MEDS ORDERED: DEXAMETHASONE SOD PHOS 4 MG/ML VIAL ONE (06:31)
[2020-11-07] MEDS ORDERED: ROCURONIUM 50 MG/5 ML VIAL. ONE (06:32)
[2020-11-07] MEDS: IV RINGERS,LACTATED 1000ML 1,000 ML IV SCH ×2 (06:37→10:01)
[2020-11-07] MEDS ORDERED: fentaNYL PF VIAL 100 MCG/2 ML VIAL IV PRN ×2 (07:00)
[2020-11-07] MEDS ORDERED: MORPHINE SULFATE 2 MG/ML VIAL. IV PRN ×2 (07:00→09:45)
[2020-11-07] MEDS ORDERED: HYDROmorphone 2 MG/ML VIAL IV PRN (07:00)
[2020-11-07] MEDS ORDERED: ONDANSETRON PF 4 MG/2 ML VIAL. IV PRN ×2 (07:00→09:45)
[2020-11-07] MEDS ORDERED: PROCHLORPERAZINE 10 MG/2 ML VIAL. IV PRN (07:00)
[2020-11-07] MEDS ORDERED: LIDOCAINE 1% PF 2 ML VIAL. ID PRN (07:00)
[2020-11-07] MEDS ORDERED: ESTROGENS, CONJ VAGINAL CREAM 30GM TUBE. ONE (07:09)
[2020-11-07] MEDS ORDERED: INDIGOTINDISULFONATE SODIUM 40 MG/5 ML AMPUL. ONE (07:09)
[2020-11-07] MEDS ORDERED: BUPIVACAINE-EPI 0.25%-1:200000 MPF 30 ML VIAL. INJ ONE (07:15)
[2020-11-07] MEDS ORDERED: fentaNYL PF VIAL 250 MCG/5 ML VIAL ONE (07:19)
[2020-11-07] MEDS ORDERED: MIDAZOLAM HCL/PF 2 MG/2 ML VIAL. ONE (07:19)
[2020-11-07] MEDS ORDERED: PHENYLEPHRINE in 0.9% NACL PF 1 MG/10 ML SYRINGE. IV ONE (07:57)
[2020-11-07] MEDS ORDERED: SEVOFLURANE > 120 MINUTES. IH ONE (07:58)
[2020-11-07] MEDS ORDERED: NEOSTIGMINE METHYLSULFATE 5 MG/5 ML SYRINGE. ONE (09:15)
[2020-11-07] MEDS ORDERED: GLYCOPYRROLATE 1 MG/5 ML VIAL. ONE (09:15)
--- NOTE | 2020-11-07 09:36 | PDOC ---
BRIEF OPERATIVE NOTE Date: Nov 07, 2020 Pre-Op Diagnosis menorrhagia, dysmenorrhea,enlarged fibroid uterus Post-Op Diagnosis same plus endometriosis Procedure Performed LAVH/bilateral salpingectomy, vapo endometriosis Surgeon Dr Beth Weller Cooky Machine Operator JOSH Moe Anesthesiologist Dr. Miranda Anesthesia Type: General Blood Loss 25cc IV Fluid 1200cc Urine Output 100cc clear via fontaine Specimens Obtained cervix, uterus, bilateral tubes Findings enlarged fibroid uterus, normal bilateral tubes and ovaries, endometriosis in posterior cul de sac Complications none Operative Note [id number] BETH WELLER MD Nov 07, 2020 09:36
[2020-11-07] MEDS ORDERED: SIMETHICONE 80 MG TAB.CHEW PO PRN (09:45)
[2020-11-07] MEDS ORDERED: LACTULOSE 20 GM/30 ML SOLUTION. PO PRN (09:45)
[2020-11-07] MEDS ORDERED: CALCIUM CARBONATE 500 MG TAB.CHEW PO PRN (09:45)
[2020-11-07] MEDS ORDERED: diphenhydrAMINE HCL 25 MG CAPSULE PO PRN (09:45)
[2020-11-07] MEDS ORDERED: MAG HYDROX/ALUMINUM HYD/SIMETH 30 ML ORAL.SUSP PO PRN (09:45)
[2020-11-07] MEDS ORDERED: 0.9 % SODIUM CHLORIDE 10 ML DISP.SYRIN. IV PRN (09:45)
[2020-11-07] MEDS ORDERED: NALOXONE 0.4 MG/ML VIAL. IV PRN (09:45)
[2020-11-07] MEDS ORDERED: diphenhydrAMINE 50 MG/ML VIAL IV PRN (09:45)
[2020-11-07] MEDS ORDERED: oxyCODONE/APAP 5/325 1 TAB TABLET PO PRN (09:45)
[2020-11-07] MEDS ORDERED: ZOLPIDEM 5 MG TABLET. PO PRN (09:45)
[2020-11-07] MEDS ORDERED: HYDROcodone/APAP 5/325MG 1 TAB TABLET PO PRN (09:45)
[2020-11-07] MEDS ORDERED: MAGNESIUM HYDROXIDE 2,400 MG/30 ML ORAL.SUSP. PO PRN (09:45)
[2020-11-07] MEDS ORDERED: fentaNYL PF VIAL 100 MCG/2 ML VIAL ONE (10:26)
--- NOTE | 2020-11-07 10:28 | OP ---
DATE OF SURGERY: 11/07/2020 PREOPERATIVE DIAGNOSES: Menorrhagia, dysmenorrhea, enlarged fibroid uterus. POSTOPERATIVE DIAGNOSES: Menorrhagia, dysmenorrhea, enlarged fibroid uterus with endometriosis, especially in the posterior cul-de-sac. PROCEDURE: Laparoscopic-assisted vaginal hysterectomy, bilateral salpingectomy, and vaporization of endometriosis. SURGEON: Cecilia Weller MD TURNTABLE ENGINEER: JOSH Moe ANESTHESIOLOGIST: Horacio Miranda MD ANESTHESIA: General. ESTIMATED BLOOD LOSS: 25 mL. URINE OUTPUT: 100 mL clear via Pineda catheter. INTRAVENOUS FLUIDS: 1200 mL of crystalloid. COMPLICATIONS: None. SPECIMENS: Cervix, uterus, bilateral tubes. FINDINGS: Enlarged fibroid uterus, normal bilateral tubes and ovaries. Endometriosis in the posterior cul-de-sac. Bladder was grossly normal. Bowel was grossly normal. Appendix was okay with some just mild scarring over there. Normal right upper quadrant edge. DESCRIPTION OF PROCEDURE: This patient was taken to the operating room where general anesthesia was placed. The patient was placed in dorsal lithotomy position in Zander stirrups. The patient's abdomen and vagina were prepped and draped in the normal sterile fashion and a Pineda catheter had been inserted under sterile technique. Upon my arrival, a timeout was performed. Once everyone agreed on the patient, the site, the procedure, the antibiotics, the procedure was initiated. A bivalve speculum was placed in the patient's vagina. A single-tooth tenaculum was used to grasp the anterior lip of the cervix. A 10 mL of 0.25% Marcaine with epinephrine was used to circumferentially inject around the cervix for both hemodissection and hemostatic purposes. Once this was done, the Valtchev uterine manipulator was placed through the endocervical os, locked on the single tooth tenaculum and the bivalve speculum was then removed. Top gloves were discarded and changed. Attention was then turned to the abdomen where a small supraumbilical skin incision was made with the scalpel. A curved Jeanie was used to dissect through the subcuticular layer to the fascia. The 5 mm Visiport was used to directly enter the abdominal cavity. Opening patient pressure was 4 mmHg. Once this was done, the patient was placed in Trendelenburg and overhead lights were dimmed. Right and left lower quadrant ports were placed under direct visualization after transilluminating the abdominal wall, finding an area clear of any vasculature, making a small incision and placing the disposable atraumatic 5 mm port in under direct visualization. Once they were in, 4-5 mL of air was placed in the trocar cuff on both of them. The camera was then moved laterally to check the umbilical port. Once it was found to be clear, it was also insufflated with 4-5 mL of air in the trocar cuff. Camera was moved back to the midline and the procedure was initiated. This was a very enlarged fibroid uterus for a nulliparous patient, but both tubes and ovaries appeared normal. Bladder was grossly normal. When it was elevated, you could see some attenuation of the uterosacral ligaments and posterior cul-de-sac had endometriosis. So at this point, the left tube was elevated and going under the tube above the ovary, doing a salpingectomy, crossing the left uteroovarian pedicle, cauterizing and cutting with the LigaSure, getting the left round ligament and going down and creating the bladder flap sharply with the monopolar hook and pulling it down. The right side tube and ovary were elevated going below the tube above the ovary, again doing a salpingectomy, then crossing the right uteroovarian pedicle as well and then the right round ligament and going down and meeting that bladder flap. Once the bladder was down, the right uterine vessels were obtained, cauterized and cut with the LigaSure, staying inside this pedicle, pushing the uterus cephalad and going down and hugging the cervix through the cardinal and broad ligaments, cauterizing and cutting. This was done exactly the same on the left side, crossing contralaterally and hugging the cervix and going down the side of the cervix, cauterizing and cutting, getting the uterine vessels first staying inside this pedicle and then staying right on the cervix and uterus, hugging it, going all the way down just above the uterosacral. The uterus was free and completely blanched at this point, so attention was turned vaginally. I did look at the right upper quadrant, the appendix, the bowel was all grossly normal except some mild scar tissue over near the appendix, so all instruments were removed from the abdomen and attention was turned vaginally. The legs were elevated. The single tooth and Valtchev were removed. A weighted speculum was placed in the patient's vagina. Thyroid Timothy clamps were placed on the anterior and posterior lips of the cervix respectively. Once this was done, a scalpel was used to make a circumferential incision in the cervix. An open Ray-Quan 4 x 4 was used to gently push up the anterior bladder peritoneum. The cervix was elevated and the posterior cul-de-sac was sharply entered. A #0 Vicryl stitch was used to secure the posterior peritoneum here to the vaginal cuff and it was tagged with a curved Jeanie clamp and the needle was cut and passed off. The short weighted vaginal speculum was removed and replaced with the long weighted Nash speculum in the posterior cul-de-sac. Once this was done, curved Too clamps x 2 were placed on the patient's left uterosacral ligament where they were doubly clamped with curved Heaneys, cut with curved Ly scissors and suture ligated x 2 with 0 Vicryl. Second one was taken through the vaginal cuff securing uterosacral ligament to the vaginal cuff, tagging it with a straight Jeanie clamp and cutting and passing the needle off. This was done exactly the same on the right side, double clamping the uterosacrals with curved Too's, cutting with curved Ly scissors, suture ligating x 2 with 0 Vicryl, taking the second one through the vaginal cuff, tying it, tagging it and cutting the needle off. After I made sure we were in anteriorly, the Ray-Quan was removed and the Alecia was placed in the anterior cul-de-sac. The right angle clamp was taken around the remaining pedicle delineating the remaining pedicle on the left. The vaginal LigaSure was used to cauterize and cut the remaining pedicle. This was done exactly the same on the right side, taking the right angle around the remaining pedicle and then using the vaginal LigaSure to cauterize and cut This was a larger uterus. I did use a tenaculum to pull out the posterior part and kind of wedge it out, but it was indeed passed off in total, but it was a large uterus. Cervix, uterus, bilateral tubes were delivered in toto and passed off for permanent pathology. A sponge stick was used to examine all the pedicles. Once they were assured to be dry. Long Allis and Russians were used to find the anterior bladder peritoneum. It was grasped with the Russians and then grasped with the long Allis, 2-0 Vicryl was taken through the anterior bladder peritoneum, left uterosacral ligament, posterior peritoneum and right uterosacral ligament, thus closing the peritoneum in a pursestring like fashion. Once this was done, the right and left uterosacral tags were clipped and the cuff was closed in an anterior to posterior running locked fashion with a full length 2-0 Vicryl in a running locked fashion. Once this was done, it was completely hemostatic. A sponge stick was used to examine the vagina and that part of the procedure was done. All sponge, lap and needle counts had been correct x 2 by OR personnel. So at this point, a second look from above was done. Copious irrigation did reveal hemostasis. Again looked at the appendix, the right upper quadrant. The cuff was elevated and the endometriosis was burned with the monopolar hook and the posterior cul-de-sac. Since she did desire to keep her ovaries as she is young and 29 years old, but to give her some relief so hopefully, it would not be stimulated immediately. Once this was done, Tisseel was placed over the pedicles and everything was hemostatic. The right and left pericolic gutters were clear. The cuff remained hemostatic, so gas was taken out of all 3 of the trocars above, the right and left ones were taken out under direct visualization and they were hemostatic. Gas was released from the umbilical port and then it also was removed. All three port sites were closed with 4-0 nylon at the skin and injected with local. The patient was then awakened from anesthesia and brought to recovery room in stable condition. CECILIA WELLER MD DR: FRANCIA/anna JOB#: [id number] / [id number]
--- NOTE | 2020-11-07 10:50 | NUR ---
Received this 29 y/o female patient via bed accompanied by PACU staff, transferred to bed per self without difficulty, c/o mild nausea, POC discussed and she verbalized understanding, denies changes in medical history since 10-31-20 at pre op visit
--- NOTE | 2020-11-07 11:30 | NUR ---
Resting with eyes closed, fiance at BS
--- NOTE | 2020-11-07 12:45 | NUR ---
C/o nausea, no vomiting, Zofran 4 mg IVP given
--- NOTE | 2020-11-07 13:30 | NUR ---
Up to BR with RN standby, steady on feet, unable to void, preeti care done and back to bed
--- NOTE | 2020-11-07 14:00 | NUR ---
States nausea has subsided, taking ice chips, water given
--- NOTE | 2020-11-07 18:00 | NUR ---
Phone call from Dr. Weller, report given on status, frequent small voids, planning to scan bladder after next void
--- NOTE | 2020-11-07 19:10 | NUR ---
Post-void residual 874 ml per bladder scan, Pt requests opportunity to void prior to catheter, up to BR
--- NOTE | 2020-11-08 18:48 | PATHOLOGY ---
[facility] Accession Number: [id number] . 01 Material submitted: . uterus - CERVIX, UTERUS AND BILATERAL FALLOPIAN TUBES . 01 Clinical history: . MENORRHAGIA FIBROID LAPAROSCOPICALLY ASSISTED VAGINAL HYSTERECTOMY . 02 Diagnosis: Uterus and attached bilateral fallopian tubes, laparoscopic assisted vaginal hysterectomy with bilateral salpingectomy: - Leiomyomas, uterine corpus, submucosal/intramural/subserosal, multiple, the largest of which is a polypoid submucosal leiomyoma protruding into endometrial cavity measuring 3.5 cm in greatest dimension (uterine weight 193 grams). - Chronic cervicitis with focal squamous metaplasia. - Inactive/atrophic pattern endometrium with stromal decidualization. - Bilateral fallopian tubes showing no significant pathologic abnormalities. (JPM:jonny; 11/08/2020) [facility] 11/08/2020 1138 Local . 02 Comment: There is no atypia or evidence of malignancy. (JPM:jonny; 11/08/2020) . 02 Electronically signed: . Dionicio Valerio MD, Pathologist NPI- [id number] . 01 Gross description: . The specimen is received in formalin labeled " Sherie Gould, cervix, uterus, bilateral fallopian tubes". Received is a 193 g, 10.8 x 7.4 x 5.8 cm distorted uterus with attached cervix and attached fallopian tubes, weighing 3 g each. The uterine serosa is pink-red to pink-nichole in appearance with multiple serosal nodules identified ranging in size from 0.1 to 1.0 cm. The 1.0 cm cervical os is surrounded by pink-cortez, smooth to granular ectocervical mucosa. The uterus is oriented using the peritoneal reflection and the anterior paracervical margin is inked black. The uterus is opened laterally to reveal a pale cortez, corrugated endocervical canal measuring 3.3 cm in length. The endometrial cavity is triangular measuring 5.7 cm in length by 2.8 cm in width. The endometrium is pale cortez, glistening in appearance and measures 0.1 cm in thickness. Within the endometrial cavity attached to the right cornu on the anterior aspect, there is a fibroid identified measuring 3.5 x 2.5 x 1.9 cm. Serial sectioning reveals a cortez-pink, trabeculated myometrium measuring up to 3.1 cm in thickness displaying multiple subserosal, submucosal and intramural fibroids ranging in size from 0.5 to 2.4 cm. . The left fimbriated fallopian tube measures 6.3 cm in length by 0.6 cm in diameter. The serosal surface is inked black. Sectioning reveals pinpoint to patent. . The right fimbriated fallopian tube measures 6.4 cm in length by 0.6 cm in diameter. Sectioning reveals pinpoint to patent. The specimen is submitted representatively as follows: . A1 12:00 cervix A2 6:00 cervix A3 serosal nodules A4 anterior endomyometrium A5 posterior endomyometrium A6 residential sales representative sections of fibroid within endometrial cavity A7-A8 residential sales representative sections of additional fibroids A9 residential sales representative sections from each fallopian tube, one of which is differentially inked. (CAA; 11/07/2020) QA/QA 11/08/2020 1135 Local . 02 Pathologist provided ICD-10: D25.0, D25.1, D25.2, N72 . 02 CPT . 736958 Specimen Comment: A courtesy copy of this report has been sent to [phone] Specimen Comment: Report sent to Specimen Comment: A duplicate report has been generated due to demographic updates. Performed at: 01 [facility] [address], [place] [id number] MD Fco Hunter MD Phone: [phone] Performed at: 02 [facility] [address], [place] [id number] MD Dionicio Valerio MD Phone: [phone]
== END 2020-11-07 20:20 | disposition home or self-care (01) ==
LOC: SURG 06:07 → 3 NORTH 09:36
PROVIDERS: ADMIT Obstetrics & Gynecology; ATTEND Obstetrics & Gynecology
DX: N92.0 Excessive and frequent menstruation with regular cycle (principal); N94.6 Dysmenorrhea, unspecified; D25.9 Leiomyoma of uterus, unspecified; N80.3 Endometriosis of pelvic peritoneum
CPT/HCPCS: 58552; 81025; 88307; 96361; 96374; G0378; G0379; J0690; J1100; J2250; J2370; J2405; J2704; J2710; J3010; J3480; J3490; J7120